=== PATIENT | male | born 1990 | race Caucasian/White ===

== ENCOUNTER 2017-06-06 07:19 | Day surgery (SDC) | payer BC ==
[~2017-06-06] VITALS: Ht 193 cm; Wt 86.5 kg
--- NOTE | 2017-06-06 06:24 | History and Physical ---
History & Physical Date of Service Jun 06, 2017. History & Physical CC: Bilateral lower extremity varicose veins HPI: Mr. Sheets states that he has had problems in his left leg for a few years, although in the last year or so, he developed varicose veins in his right leg as well. He states that approximately 2 months ago, he developed severe pain over the vein in his right lower leg and it was very hard to touch and red at that time. He said that he saw his family physician and advised him to wear knee-high compression and did give him a prescription for this at that time and states he has been wearing them as it does alleviate some of the discomfort related to the varicosity there. He was found to have significant venous insufficiency of the right greater saphenous vein. He denies any history of DVT and also denies other complaints at this time including headaches , fevers, chills, dizziness, chest pain, shortness of breath, abdominal pain, nausea, vomiting, diarrhea, constipation, dysuria, hematuria, rest pain, claudication, nonhealing wounds or ulcers, or other complaints. ALLERGIES: No known allergies. HOME MEDICATIONS: Reconciled on the chart and include albuterol, bupropion, trazodone, tretinoin, and Symbicort. PAST MEDICAL HISTORY: Positive for asthma, anxiety, acne vulgaris, and Matt- Danlos type 3. PAST SURGICAL HISTORY: Negative. FAMILY HISTORY: Positive for Matt-Danlos in his sister and his mother, type 3 also. SOCIAL HISTORY: Negative for tobacco, alcohol, or drug use. REVIEW OF SYSTEMS: Negative for fatigue, fevers, sweats, weight loss, exercise intolerance, abnormal moles or rashes, vision changes or photophobia, ear pain, sinus problems or sore throat, cough, shortness of breath, hemoptysis or wheezing, chest pain, palpitations, or syncope. He does admit to edema at his bilateral lower extremities, which he states does get worse throughout the day despite wearing his compression. He denies muscle weakness, headaches, dizziness, numbness, or seizures. PHYSICAL EXAMINATION: His vital signs today are as follows: Blood pressure 104 /66 in the right arm, 104/62 in the left; heart rate of 86; oxygen 98% on room air. The patient is 193.04 cm tall and weighs 89.4 kg. Constitutional: In general, the patient is a healthy for age, appearing well-nourished, well- developed young male, in no acute distress. He ambulates without assistance and is active, alert, and oriented x4 with recent and remote memory. Head is normocephalic and atraumatic. Eyes are EOMI. ENT exam demonstrates no hearing loss, rhinorrhea, or pharyngeal erythema. Neck is supple, nontender with midline trachea without masses or crepitus. Lung exam demonstrates no dyspnea. They are clear to auscultation bilaterally. Cardiovascular exam demonstrates nondisplaced apical impulse with a regular rate and rhythm without murmurs, lifts, heaves, thrills, or gallops. Peripheral pulses full and equal in all extremities unless otherwise noted, specifically they are normal in his carotid , brachial, radial, femoral, posterior tibial, and dorsalis pedis pulses. The patient demonstrates no bruit in his carotid, abdominal, or femoral area. Abdomen is soft, nontender with normoactive bowel sounds in all 4 quadrants without guarding or rebound. There is no flank or CVA tenderness. Musculoskeletal exam demonstrates normal tone and strength for age. Bilateral upper extremities demonstrate no cyanosis, edema, clubbing, varicosities, or ulcers. Bilateral lower extremities do demonstrate scattered varicosities. These are primarily noted from the knee down and are large and ropey. There is an area in the right with a firm, hardened vein, which appears to be thrombosed. The rest of the veins in his legs are soft and thrombosed vein is mildly tender to touch. He has +1 to +2 edema of his lower extremity. He does have some skin changes consistent with venous insufficiency in the left leg as well. Neurologic: The patient has grossly intact cranial nerves and grossly intact sensation. ASSESSMENT: 1. Complicated varicose veins of the bilateral lower extremities. 2. Recent thrombophlebitis of the right lower extremity. PLAN: Patient is admitted for ablation of the right and left greater saphenous vein. I have discussed the risks options and benefits of the procedure with the patient. The patient understands the risks options and benefits and agrees to the procedure.
[~2017-06-06 07:19] MED LIST: ALBU1AER9 INH; CEFAZOLIN 1000MG IV PUSH 5 ML IV SCH; MOME100A INH; PATIENT'S HEIGHT AND/OR WEIGHT NEEDED SCH; SODIUM CHLORIDE 0.9% 1000ML IV SCH
[2017-06-06] MEDS ORDERED: TRAZ50TA35 PO (07:46)
[2017-06-06] MEDS ORDERED: SYMIN160 INH (07:46)
[2017-06-06] MEDS ORDERED: BUPR-79 PO (07:46)
[2017-06-06 07:49] VITALS: BP 119/70; PULSE 69; TEMP 37; O2SAT 99; Ht 193 cm; Wt 86.5 kg
[2017-06-06] MEDS ORDERED: ZNTT/150 PO (07:55)
--- NOTE | 2017-06-06 08:02 | Procedure Note ---
Pre-Mod Sedation Assessment General Date of Moderate Sedation: Jun 06, 2017. Pre-Sedation Airway Assessment Oral Cavity: WNL Short Thick Neck: No Hx of Sleep Apnea: No Smoking Status: Former Smoker Mallampati Classification: Class I ASA Classification: Class I Notes The planned sedation has been discussed with the patient and consent obtained. I have identified the patient, determined the appropriateness of sedation and have assessed the patient immediately prior to the procedure. All medicine(s) and interventions are by my order.
--- NOTE | 2017-06-06 08:02 | History & Physical Bridge Note ---
H&P Re-Evaluation Bridge Note: I have examined the patient, reviewed the History & Physical and in the interval since the performance of the History & Physical I have noted the following changes of clinical significance: No changes noted
[2017-06-06 08:03] VITALS: BP 119/70; PULSE 69; TEMP 37; O2SAT 99
[2017-06-06] MEDS ORDERED: MIDAZOLAM HCL 1 MG/ML 2ML VIAL ONE ×2 (08:18→09:10)
[2017-06-06] MEDS ORDERED: LIDOCAINE HCL 1% 20 ML VIAL ONE (08:18)
[2017-06-06] MEDS ORDERED: FENTANYL CITRATE INJ 50 MCG/1 ML 2 ML VIAL ONE ×2 (08:18→09:28)
[2017-06-06] MEDS ORDERED: SODIUM BICARB 8.4% INJ 50 MEQ/50 ML SYR IV ONE (08:18)
[2017-06-06] MEDS ORDERED: LIDOCAINE/EPINEPHRINE 1% INJ 50 ML VIAL ONE (08:18)
[2017-06-06 08:30] VITALS: BP 119/70; TEMP 37; O2SAT 99
[2017-06-06] MEDS ORDERED: CEFAZOLIN SOD 2000MG/10 ML IV PUSH IV ONE (08:34)
--- NOTE | 2017-06-06 10:14 | Discharge Instructions ---
Discharge Instructions Date of Service Jun 06, 2017. Visit Reason for Visit: Bilateral Lower Extremities Varicose Veins Discharge Discharge Diagnosis / Problem: Bilateral venous insufficiency Discharge Goals Goal(s): Therapeutic intervention Activity Recommendations Activity Limitations: per Instructions/Follow-up section Anesthesia . Post Anesthesia Instructions: If you have had General Anesthesia or IV Sedation: * Do not drive today. * Resume driving when surgeon permits. * Do not make important decisions or sign legal documents today. * Call surgeon for: 1. Temperature elevations greater than 101 degrees F. 2. Uncontrollable pain. 3. Excessive bleeding. 4. Persistent nausea and vomiting. 5. Medication intolerance (nausea, vomiting or rash). * For nausea and vomiting use only clear liquids such as: tea, soda, bouillon until nausea subsides, then gradually increase diet as tolerated. * If you have any concerns or questions, call your surgeon's office. If physician is unavailable and it is an emergency, call 911 or go to the nearest emergency room. . Instructions / Follow-Up Instructions / Follow-Up Call [phone] to schedule a follow up appointment if one not already scheduled. SPECIAL CARE INSTRUCTIONS: Wraps/Dressings: * A compression wrap will be applied to your legs after the procedure and should remain in place until the morning after. * Remove the bandage if it rolls down or causes pain. Rewrap the leg starting at the bottom of the leg, just above the toes. Apply firm, but gently pressure when applying the wrap. * Avoid getting the wrap wet. * You may shower the following morning after you remove the wraps/dressings. Compression Stockings: * Begin wearing compression stockings the day following your procedure (after you have removed the wraps/dressings and showered). * Compression stockings should be put on in the morning and removed right before going to bed. * Stockings should be worn for 2 weeks following the procedure. * YOU MUST OBTAIN THE PRESCRIBED STOCKINGS PRIOR TO YOUR PROCEDURE. Activity: * Walk 4-5 times around the house after you come home from your procedure. * Elevate your leg(s) while sitting. * You may resume your normal activities as tolerated after 48 hours. * AVOID HEAVY LIFTING FOR 1 WEEK AND/OR CAR TRIPS OVER 1 HOUR OR FLYING FOR 2 WEEKS. Possible Complications: * Swelling/Bruising/Soreness - You may have some swelling, bruising and/or soreness after the procedure. you may also feel a "cord or rope" under the skin. This is normal. You may take Tylenol or Ibuprofen for pain as directed. Call our office ([phone]) if you develop: * Any redness, severe swelling, pain in the calf and/or drainage from the puncture sites You will be receiving a call from the Vascular Surgery Nurse after you are discharged. FOLLOW UP VISIT: You will be scheduled for an ultrasound of your leg(s) 4-5 days after the procedure. You will have a follow up visit with your surgeon in 2-4 weeks. If these have not already been scheduled, please call our office at [phone] to schedule. Diet Recommendations Recommended Home Diet: resume previous diet Procedures Procedures Performed: Bilateral Greater Saphenous Vein, Radiofrequency Abaltion Moderate Sedation Pending Studies Studies pending at discharge: no Medical Emergencies . Who to Call and When: Medical Emergencies: If at any time you feel your situation is an emergency, please call 911 immediately. . Non-Emergent Contact Non-Emergency issues call your: Surgeon . . "Provider Documentation" section prepared by Mauri Han. .
--- NOTE | 2017-06-06 10:17 | [facility] Post Operative Brief Note ---
Immediate Operative Summary Operative Date Jun 06, 2017. Pre-Operative Diagnosis Venous Insufficiency Post-Operative Diagnosis Same Procedure(s) Performed Bilateral Greater Saphenous Vein, Radiofrequency Abaltion Moderate Sedation [id number] Surgeon Guille Screen Door Maker Surgeon(s) Marie Estimated Blood Loss 5 Findings Patent CFV post ablation Specimens None Anesthesia Local with sedation Complication(s) None Disposition
[2017-06-06] MEDS ORDERED: LIDOCAINE HCL 1% 20 ML VIAL INJ ONE (10:23)
[2017-06-06] MEDS ORDERED: ORM MISCELLANEOUS MED XX ONE (10:23)
[2017-06-06] MEDS ORDERED: MIDAZOLAM HCL 5 MG/ML 1 ML VIAL IV ONE (10:24)
[2017-06-06] MEDS ORDERED: FENTANYL CITRATE INJ 50 MCG/1 ML 2 ML VIAL IV ONE (10:26)
[2017-06-06 10:30] VITALS: BP 139/79; PULSE 97; TEMP 36.4; O2SAT 98
[2017-06-06 11:00] VITALS: BP 141/87; PULSE 64; TEMP 36.8; O2SAT 97
--- NOTE | 2017-06-06 11:25 | Procedure Note ---
Post-Moderate Sedation Plan General Date of Moderate Sedation Jun 06, 2017. Vital Signs: Vital Signs Past 12 Hours Date Time Temp Pulse Resp B/P (MAP) Pulse Ox O2 Delivery O2 Flow Rate FiO2 06/06/17 10:30 36.4 97 18 139/79 98 Room Air 06/06/17 10:16 70 18 138/78 97 Room Air 06/06/17 08:30 37.0 20 119/70 99 Room Air 06/06/17 08:03 37.0 69 20 119/70 99 Room Air 06/06/17 07:49 37 69 20 119/70 (86) 99 Room Air Review - Discharge Plan Post Moderate Sedation Plan: On clinical assessment, the patient appears to have tolerated the conscious sedation without complications. Patient is recovering as anticipated. Patient will continue to be monitored by nursing and may be discharged when conscious sedation discharge criteria are met.
--- NOTE | 2017-06-06 13:40 | DIAGNOSTIC IMAGING REPORT ---
RIGHT LOWER EXTREMITY GUIDANCE FOR VENOUS ABLATION CLINICAL HISTORY: .varicose veins. COMPARISON STUDY: None. FINDINGS: Real-time sonographic imaging of the right groin was performed. Ultrasound guidance provided for ablation of varicose veins within the right lower extremity. The common femoral vein and greater saphenous vein are identified on preliminary imaging. IMPRESSION: Ultrasound guidance provided for ablation of varicose veins within the right lower extremity. Electronically signed by: Yonathan Corral M.D. 06/06/2017 1:38 PM Dictated Date/Time: 06/06/2017 1:35 PM
--- NOTE | 2017-07-04 15:01 | DIAGNOSTIC IMAGING REPORT ---
DATE OF PROCEDURE: 06/06/2017 PREOPERATIVE DIAGNOSIS: Bilateral venous insufficiency. POSTOPERATIVE DIAGNOSIS: Same. PROCEDURE: 1. Radiofrequency ablation of bilateral greater saphenous vein. 2. Moderate sedation. SURGEON: Dr. Han. ANESTHETIC: Moderate sedation. PROCEDURE INDICATIONS: The patient is a 27-year-old gentleman with bilateral venous insufficiency. Ablation was recommended. He understood the risks, options and benefits and agreed to have this procedure. OPERATION AND FINDINGS: The patient was taken to the angiogram suite and placed in supine position. After her right leg was prepped and draped in a sterile manner, local anesthetic was administered. Using ultrasound, a puncture was made of the greater saphenous vein just below the knee. A wire was then passed centrally. Imaging was used to see the guidewire at the saphenofemoral junction. The radiofrequency ablation catheter was then inserted and placed 2 cm from the saphenofemoral junction. Timulsen was then used to inject around the saphenous vein. This was done without difficulty. The wire was then removed. The position of the catheter was then confirmed and the radiofrequency ablation was done. All segments were done with 2 applications throughout. Once the catheter was removed pressure was applied to the puncture site. Adequate hemostasis was obtained. The leg was then wrapped with an John wrap. The left leg was then prepped and draped in a sterile manner. Again, ultrasound was used to find the greater saphenous vein below the knee. This was punctured using micropuncture technique. Wire was then passed centrally. The wire position was confirmed at the saphenofemoral junction. The catheter was then reinserted through the left side up to 2 cm from the saphenofemoral junction. Timulsen infusion was then done around the saphenous vein from the puncture site up to the groin. The wire was then removed. The position of the catheter was reconfirmed and ablation was accomplished with greater saphenous vein from 2 cm from the saphenofemoral junction down to below the knee. Once the catheter was removed pressure was applied. Adequate hemostasis was obtained. This leg was also wrapped with an John wrap. The patient left the operating room in satisfactory condition and tolerated the procedure well. [facility]
== END 2017-06-06 11:25 | disposition home or self-care (01) ==
LOC: C.ACU 07:19
PROVIDERS: ATTEND Surgery Vascular Surgery
DX: I83.893 Varicose veins of bilateral lower extremities with other complications (principal); Z86.72 Personal history of thrombophlebitis; J45.909 Unspecified asthma, uncomplicated; F41.9 Anxiety disorder, unspecified; Q79.6 Ehlers-Danlos syndromes